=== PATIENT | female | born 1955 | race Asian ===

== ENCOUNTER 2016-08-01 05:22 | Emergency (ER) | payer OTHER ==
[~2016-08-01] VITALS: Ht 163.8 cm; Wt 58.2 kg
[~2016-08-01 05:22] MED LIST: AMLO5TAB4 PO; ASPI-664 PO; ATOR20TA38 PO; BENZ2TAB37 PO; BUSP10TA2 PO; DIVA500T7 PO; LEVO50TA83 PO; LORA-441 PO; LORA1TAB PO; OLAN15TA7 PO; OMEP20CA9 PO; PHEN100C PO; SERT50TA6 PO
[2016-08-01 05:31] VITALS: Ht 163.8 cm; Wt 58.2 kg
[2016-08-01] MEDS ORDERED: SOD CHLORIDE 0.9% 1,000 ML IV STA (06:20)
[2016-08-01] MEDS ORDERED: LORAZEPAM 2 MG INJ IV ONE (06:30)
[2016-08-01] MEDS ORDERED: ETOMIDATE 20 MG INJ ONE (07:00)
[2016-08-01] MEDS ORDERED: NORepinephrine 8MG/250 ML BAG ONE (07:00)
[2016-08-01] MEDS ORDERED: ROCURONIUM 50 MG INJ ONE (07:00)
[2016-08-01 07:06] LABS: HEMATOCRIT 43.2 % (37.0-47.0); HEMOGLOBIN 14.8 g/dl (12.0-16.0); MEAN CORPUSCULAR HEMOGLOBIN 32.7 pg (29.0-33.0); MEAN CORPUSCULAR HGB CONC 34.4 g/dl (32.0-37.0); MEAN CORPUSCULAR VOLUME 95.2 fl (82.0-101.0); MEAN PLATELET VOLUME 7.4 fl (7.4-10.4); PLATELET COUNT 280 10^3/UL (140-440); RED BLOOD COUNT 4.53 10^6/ul (4.20-5.40); RED CELL DISTRIBUTION WIDTH 15.1 % (11.5-14.5); UNCORRECTED WBC 6.7 10^3/ul (4.8-10.8); WHITE BLOOD COUNT 6.7 10^3/ul (4.8-10.8)
[2016-08-01 07:10] LABS: ADD UMIC YES; URINE BILIRUBIN (Dip) NEGATIVE (NEGATIVE); URINE BLOOD (Dip) TRACE (NEGATIVE); URINE COLOR LT. YELLOW (YELLOW); URINE GLUCOSE (Dip) NEGATIVE (NEGATIVE); URINE KETONES (Dip) NEGATIVE (NEGATIVE); URINE LEUKOCYTE ESTERASE (Dip) NEGATIVE (NEGATIVE); URINE NITRITE (Dip) NEGATIVE (NEGATIVE); URINE TOTAL PROTEIN (Dip) NEGATIVE (NEGATIVE); URINE UROBILINOGEN (Dip) 0.2 E.U./dL (0.1-1.0)
[2016-08-01 07:13] LABS: ALBUMIN 3.9 g/dl (3.3-4.9); CHLORIDE 99 mmol/L (97-110)
[2016-08-01 07:14] LABS: POTASSIUM 4.4 mmol/L (3.5-5.1); SODIUM 140 mmol/L (135-144)
[2016-08-01 07:16] LABS: BILIRUBIN,INDIRECT 0.2 mg/dl (0-1.1); BILIRUBIN,TOTAL 0.2 mg/dl (0.2-1.3); CREATININE 0.69 mg/dl (0.44-1.00)
[2016-08-01 07:17] LABS: ALANINE AMINOTRANSFERASE 23 IU/L (13-69); ALBUMIN/GLOBULIN RATIO 0.86; ALKALINE PHOSPHATASE 80 IU/L (42-121); ANION GAP 15 (8-16); ASPARTATE AMINO TRANSFERASE 32 IU/L (15-46); BLOOD UREA NITROGEN 17 mg/dl (7-20); CALCIUM 9.6 mg/dl (8.4-10.2); CARBON DIOXIDE 30 mmol/L (21-31); GLUCOSE 92 mg/dl (70-220); TOTAL PROTEIN 8.4 g/dl (6.1-8.1)
[2016-08-01 07:22] LABS: VALPROATE 79 ug/ml (50-100)
[2016-08-01 07:31] LABS: CONDITION 1; SUSPECT 1
[2016-08-01 07:32] LABS: LH ANALYZER COMMENTS 1
--- NOTE | 2016-08-01 07:37 | RADRPT ---
PROCEDURE: CT Brain without. CLINICAL INDICATION: Altered mental status TECHNIQUE: A CT of the brain was performed utilizing axial sections from the skull base through th e vertex without contrast. The scan was reviewed in soft tissue brain and high frequency resolution bone algorithm windows. Images were reviewed on a high-resolution PACS workstation. The exam CTDI = 45.01 mGy, and the DLP = 720.23 mGy-cm. COMPARISON: Head CT dated 06/05/2015 FINDINGS: There are postsurgical changes from left frontoparietal craniotomy. There are encephalomalacic clayton ges of the left temporal and parietal lobes with ex vacuo dilatation of the left temporal horn. The re is mild prominence of the lateral ventricles and cerebral sulci, consistent with diffuse cerebral atrophy. There is no intracranial hemorrhage, midline shift, or mass effect. No abnormal extra-axi al fluid collections are identified. The rodriguez-white differentiation is well preserved. The basal cisterns are patent. The posterior fossa is unremarkable. The visualized portions of the orbits are unremarkable. The paranasal sinuses and mastoid air cells are clear. No calvarial fracture or abnormality are identified. The soft tissues are unremarkable . IMPRESSION: 1. No acute intracranial abnormality. No significant interval change. 2. Stable postsurgical changes from left frontoparietal craniotomy with encephalomalacic changes of the left temporal and parietal lobes and ex vacuo dilatation of the left temporal horn. 3. Age related senescent changes with mild diffuse cerebral atrophy. RPTAT: HH .Tati Flores MD, Date Time Electronically viewed and signed by .Tati Flores MD, MD on 08/01/2016 07:36 .Joy/
[2016-08-01 07:46] LABS: TROPONIN-I < 0.012 ng/ml (0.00-0.12)
[2016-08-01 07:59] LABS: BACTERIA,URINE MODERATE
--- NOTE | 2016-08-01 08:27 | ERD ---
ER Documentation Chief Complaint Date/Time DATE: 08/01/16 TIME: 08:26 Chief Complaint BIBA c/o shakiness and nausea HPI Patient is a 60-year-old female with seizures, psychiatric disease, and OCD who presents saying "I am trying to kill myself". She said that she has pain in her butt, headache, and bilateral hand pain. She said the symptoms started yesterday. She is feeling shaky. She said the symptoms were worse today. Upon review of old medical records she has multiple visits to the ER for various complaints. Her primary doctor is at [facility]. ROS All systems reviewed and are negative except as per history of present illness. Medications Home Meds Active Scripts Lorazepam* (Lorazepam*) 1 Mg Tablet, 1 MG PO Q8H Y for ANXIETY, #15 TAB Prov:CHUN PASTRANA 02/08/16 Lorazepam* (Ativan*) 0.5 Mg Tablet, 0.5 MG PO Q8H Y for ANXIETY, #5 TAB Prov:FALGUNI BONDS DO 10/24/15 Reported Medications Sertraline Hcl* (Sertraline Hcl*) 50 Mg Tablet, 50 MG PO DAILY, TAB 06/05/15 Olanzapine* (Olanzapine*) 15 Mg Tablet, 15 MG PO DAILY, TAB 06/05/15 Benztropine Mesylate* (Benztropine Mesylate*) 2 Mg Tablet, 2 MG PO Q2 Y for SHAKINESS, TAB 06/05/15 Aspirin* (Aspirin* EC) 81 Mg Tablet.dr, 81 MG PO DAILY, TAB 06/05/15 Omeprazole* (Prilosec*) 20 Mg Capsule.dr, 20 MG PO 30 MIN AC BREAKFAST, CAP 05/13/14 Atorvastatin Calcium* (Atorvastatin Calcium*) 20 Mg Tablet, 20 MG PO HS, TAB 05/13/14 Levothyroxine Sodium* (Synthroid*) 50 Mcg Tablet, 50 MCG PO 30 MIN AC BREAKFAST , TAB 05/13/14 Amlodipine Besylate* (Norvasc*) 5 Mg Tablet, 5 MG PO QAM, TAB 05/13/14 Phenytoin* Sodium Extended (Dilantin*) 100 Mg Capsule, 400 MG PO HS, CAP 05/13/14 Divalproex Sodium* (Depakote ER*) 500 Mg Tabsr, 1000 MG PO BID, TAB.SA 05/13/14 Buspirone Hcl* (Buspirone Hcl*) 10 Mg Tab, 10 MG PO TID, TAB 05/13/14 Allergies Allergies: Coded Allergies: haloperidol (Verified Allergy, Unknown, 02/07/16) levetiracetam (Verified Allergy, Unknown, 02/07/16) risperidone (Verified Allergy, Unknown, 02/07/16) PMhx/Soc History of Surgery: Yes (BRAIN TUMOR 1983) Anesthesia Reaction: No Hx Neurological Disorder: No Hx Respiratory Disorders: No Hx Cardiac Disorders: Yes (HTN, CHOLESTEROL ) Hx Psychiatric Problems: Yes (ANXIETY, SUICIDAL ) Hx Miscellaneous Medical Probl: Yes (DIABETES, OCD ) Hx Alcohol Use: No Hx Substance Use: No Hx Tobacco Use: No Smoking Status: Never smoker FmHx Family History: No diabetes Physical Exam Vitals Vital Signs Date Time Temp Pulse Resp B/P Pulse Ox O2 Delivery O2 Flow Rate FiO2 08/01/16 05:31 97.1 128 18 179/89 96 Physical Exam Const: No acute distress Head: Atraumatic Eyes: Normal Conjunctiva ENT: Normal External Ears, Nose and Mouth. Neck: Full range of motion..~ No meningismus. Resp: Clear to auscultation bilaterally Cardio: Regular rate and rhythm, no murmurs Abd: Soft, non tender, non distended. Normal bowel sounds Skin: No petechiae or rashes Back: No midline or flank tenderness Ext: No cyanosis, or edema Neur: Awake and alert, anxious, bilateral hand shakiness Psych: Normal Mood and Affect Result Diagram: 08/01/1644 08/01/16 0644 Results 24 hrs Laboratory Tests Test 08/01/16 06:44 Alanine Aminotransferase (ALT/SGPT) 23IU/L Albumin 3.9g/dl Albumin/Globulin Ratio 0.86 Alkaline Phosphatase 80IU/L Anion Gap 15 Aspartate Amino Transf (AST/SGOT) 32IU/L Basophils # 10^3/ul Basophils % % Blood Morphology Comment Blood Urea Nitrogen 17mg/dl Calcium Level 9.6mg/dl Carbon Dioxide Level 30mmol/L Chloride Level 99mmol/L Creatinine 0.69mg/dl Direct Bilirubin 0.00mg/dl Eosinophils # 10^3/ul Eosinophils % % Globulin 4.50g/dl Glucose Level 92mg/dl Hematocrit 43.2% Hemoglobin 14.8g/dl Indirect Bilirubin 0.2mg/dl Lipase 64U/L Lymphocytes # 10^3/ul Lymphocytes % % Mean Corpuscular Hemoglobin 32.7pg Mean Corpuscular Hemoglobin Concent 34.4g/dl Mean Corpuscular Volume 95.2fl Mean Platelet Volume 7.4fl Monocytes # 10^3/ul Neutrophils # 10^3/ul Neutrophils % % Nucleated Red Blood Cells # 10^3/ul Nucleated Red Blood Cells % /100WBC Phenytoin (Dilantin) Level 13.7ug/ml Platelet Count 50154^3/UL Potassium Level 4.4mmol/L Red Blood Count 4.5310^6/ul Red Cell Distribution Width 15.1% Sodium Level 140mmol/L Total Bilirubin 0.2mg/dl Total Protein 8.4g/dl Troponin I < 0.012ng/ml Urine Bacteria MODERATE Urine Bilirubin NEGATIVE Urine Clarity CLEAR Urine Color LT. YELLOW Urine Epithelial Cells MANY Urine Glucose NEGATIVE% Urine Hemoglobin TRACE Urine Ketones NEGATIVE Urine Leukocyte Esterase NEGATIVE Urine Microscopic RBC 2-5/HPF Urine Microscopic WBC 2-5/HPF Urine Nitrite NEGATIVE Urine Specific [place] 1.010 Urine Total Protein NEGATIVE Urine Urobilinogen 0.2 E.U./dL Urine pH 6.5 Valproic Acid (Depakene) Level 79ug/ml White Blood Count 6.710^3/ul Current Medications Medications (Trade) Dose Ordered Sig/Moustapha Route PRN Reason Start Time Stop Time Status Last Admin Dose Admin Sodium Chloride (NS) 1,000 ml @ 1,000 mls/hr Q1H STAT IV 08/01/16 06:20 08/01/16 07:19 DC 08/01/16 06:57 Lorazepam (Ativan) 0.5 mg ONCE ONCE IV 08/01/16 06:30 08/01/16 06:31 DC 08/01/16 06:57 Procedures/MDM EKG read by me: Rate/Rhythm: Regular rate and rhythm at a rate of 60 Intervals: Normal Impression: No evidence of ischemia or arrhythmia CT head negative for intracranial mass or bleed per radiology. Patient is a 60-year-old female with psychiatric disease and seizures who presents with pain and shaking. The patient had a full workup including laboratory studies, EKG, and CT brain. Laboratory studies were basically negative. Her Dilantin and valproic acid levels are normal. EKG shows no sign of ischemia. CT scan of the brain shows no intracranial hemorrhage or mass. At this point I believe outpatient management is appropriate. I doubt stroke, acute coronary syndrome, or electrolyte abnormality. I believe outpatient management is appropriate but the patient will need to follow-up closely with her primary doctor within 24-48 hours. She can return sooner for any worsening symptoms. Departure Diagnosis: Primary Impression: Episode of shaking Condition: Fair Patient Instructions: Palpitations Referrals: Your doctor Additional Instructions: Call your primary care doctor TOMORROW for an appointment during the next 1-2 days.See the doctor sooner or return here if your condition worsens before your appointment time. JL BETANCOURT MD Aug 01, 2016 08:27
[2016-08-01 08:41] VITALS: BP 122/65; PULSE 77; RESP 18
[2016-08-01 09:55] LABS: BASOPHIL # 0.1 10^3/ul (0.0-0.1); MONOCYTE # 1.2 10^3/ul (0.3-0.9); NEUTROPHIL # 3.2 10^3/ul (1.6-7.5)
== END 2016-08-01 08:42 | disposition home or self-care (01) ==
LOC: E/R 05:22
DX: R25.1 Tremor, unspecified (principal); I10 Essential (primary) hypertension; E11.9 Type 2 diabetes mellitus without complications; R51 Headache; Z79.82 Long term (current) use of aspirin
CPT/HCPCS: 36415; 70450; 80053; 80164; 80185; 81001; 83690; 84484; 85025; 93005; 96374; 99285; J2060; J7030; 81003

== ENCOUNTER 2017-05-19 06:08 | Emergency (ER) | payer OTHER ==
[~2017-05-19] VITALS: Ht 160 cm; Wt 60.0 kg
[2017-05-19 06:17] VITALS: Ht 160 cm; Wt 60.0 kg
[2017-05-19] MEDS ORDERED: LORAZEPAM 2 MG INJ IV ONE (06:30)
[2017-05-19 07:22] LABS: BASOPHILS % 0.4 % (0.0-2.0); EOSINOPHILS # 0.2 10^3/ul (0.0-0.5); EOSINOPHILS % 3.3 % (0.0-7.0); HEMATOCRIT 39.9 % (37.0-47.0); HEMOGLOBIN 13.7 g/dl (12.0-16.0); LYMPHOCYTES # 1.7 10^3/ul (0.8-2.9); LYMPHOCYTES % 34.3 % (15.0-51.0); MEAN CORPUSCULAR HEMOGLOBIN 31.5 pg (29.0-33.0); MEAN CORPUSCULAR HGB CONC 34.3 g/dl (32.0-37.0); MEAN CORPUSCULAR VOLUME 91.7 fl (82.0-101.0); MEAN PLATELET VOLUME 9.3 fl (7.4-10.4); MONOCYTE # 0.7 10^3/ul (0.3-0.9); MONOCYTES % 15.3 % (0.0-11.0); NEUTROPHIL # 2.2 10^3/ul (1.6-7.5); NEUTROPHILS % 46.3 % (39.0-77.0); PLATELET COUNT 235 10^3/UL (140-415); RED BLOOD COUNT 4.35 10^6/ul (4.20-5.40); RED CELL DISTRIBUTION WIDTH 13.5 % (11.5-14.5); WHITE BLOOD COUNT 4.8 10^3/ul (4.8-10.8)
[2017-05-19 07:41] LABS: ANION GAP 14 (8-16); BLOOD UREA NITROGEN 16 mg/dl (7-20); CALCIUM 9.3 mg/dl (8.4-10.2); CARBON DIOXIDE 30 mmol/L (21-31); CHLORIDE 104 mmol/L (97-110); CREATININE 0.78 mg/dl (0.44-1.00); GLUCOSE 114 mg/dl (70-220); MAGNESIUM 1.9 mg/dl (1.7-2.5); POTASSIUM 3.6 mmol/L (3.5-5.1); SODIUM 144 mmol/L (135-144)
--- NOTE | 2017-05-19 07:48 | RADRPT ---
PROCEDURE: CHEST - 1 VIEW CLINICAL INDICATION: 61-year-old female with chest pain. TECHNIQUE: A single frontal AP upright portable view of the chest was performed. The images were reviewed on a PACS workstation. COMPARISON: CR CHEST 05/24/2013 FINDINGS: The cardiomediastinal silhouette there is mildly enlarged.. The left costophrenic angle is incomplet joon visualized. There is no evidence for an infiltrate. There is no evidence for congestive heart f ailure. There is no evidence for pneumothorax. The osseous structures are intact. IMPRESSION: Mild cardiomegaly. .Reji De La Torre MD, MD Date Time Electronically viewed and signed by .Reji De La Torre MD, on 05/19/2017 07:48 .M/
[2017-05-19 07:54] LABS: TROPONIN-I < 0.012 ng/ml (0.00-0.12)
--- NOTE | 2017-05-19 09:15 | ERD ---
ER Documentation Chief Complaint Chief Complaint anxious, shakey, abdominal pain- "felt her heart was all over the place" HPI Patient is a 61-year-old female with panic attacks, seizures, and previous brain tumor with resection who presents saying that she is having palpitations. She was brought in by ambulance. She says "I apologize having a heart attack ". She said that her heart was beating fast. It started 2 hours ago. She said that she had a dream that she was dying and felt very anxious. Upon review of old medical records the patient has multiple visits to the ER for various complaints. ROS All systems reviewed and are negative except as per history of present illness. Medications Home Meds Active Scripts Lorazepam* (Lorazepam*) 1 Mg Tablet, 1 MG PO Q8H Y for ANXIETY, #15 TAB Prov:CHUN PASTRANA 02/08/16 Lorazepam* (Ativan*) 0.5 Mg Tablet, 0.5 MG PO Q8H Y for ANXIETY, #5 TAB Prov:FALGUNI BONDS DO 10/24/15 Reported Medications Sertraline Hcl* (Sertraline Hcl*) 50 Mg Tablet, 50 MG PO DAILY, TAB 06/05/15 Olanzapine* (Olanzapine*) 15 Mg Tablet, 15 MG PO DAILY, TAB 06/05/15 Benztropine Mesylate* (Benztropine Mesylate*) 2 Mg Tablet, 2 MG PO Q2 Y for SHAKINESS, TAB 06/05/15 Aspirin* (Aspirin* EC) 81 Mg Tablet.dr, 81 MG PO DAILY, TAB 06/05/15 Omeprazole* (Prilosec*) 20 Mg Capsule.dr, 20 MG PO 30 MIN AC BREAKFAST, CAP 05/13/14 Atorvastatin Calcium* (Atorvastatin Calcium*) 20 Mg Tablet, 20 MG PO HS, TAB 05/13/14 Levothyroxine Sodium* (Synthroid*) 50 Mcg Tablet, 50 MCG PO 30 MIN AC BREAKFAST , TAB 05/13/14 Amlodipine Besylate* (Norvasc*) 5 Mg Tablet, 5 MG PO QAM, TAB 05/13/14 Phenytoin* Sodium Extended (Dilantin*) 100 Mg Capsule, 400 MG PO HS, CAP 05/13/14 Divalproex Sodium* (Depakote ER*) 500 Mg Tabsr, 1000 MG PO BID, TAB.SA 05/13/14 Buspirone Hcl* (Buspirone Hcl*) 10 Mg Tab, 10 MG PO TID, TAB 05/13/14 Allergies Allergies: Coded Allergies: haloperidol (Verified Allergy, Unknown, 02/07/16) levetiracetam (Verified Allergy, Unknown, 02/07/16) risperidone (Verified Allergy, Unknown, 02/07/16) PMhx/Soc History of Surgery: Yes (BRAIN TUMOR 1983) Anesthesia Reaction: No Hx Neurological Disorder: No Hx Respiratory Disorders: No Hx Cardiac Disorders: Yes (HTN, CHOLESTEROL ) Hx Psychiatric Problems: Yes (ANXIETY) Hx Miscellaneous Medical Probl: Yes (DIABETES, OCD ) Hx Alcohol Use: No Hx Substance Use: No Hx Tobacco Use: No Smoking Status: Never smoker FmHx Family History: diabetes Physical Exam Vitals Vital Signs Date Time Temp Pulse Resp B/P Pulse Ox O2 Delivery O2 Flow Rate FiO2 05/19/17 08:15 56 19 146/65 100 Nasal Cannula 2.0 05/19/17 06:52 Nasal Cannula 2 05/19/17 06:17 98.3 74 15 187/96 99 Physical Exam Const: Anxious Head: Atraumatic Eyes: Normal Conjunctiva ENT: Normal External Ears, Nose and Mouth. Neck: Full range of motion..~ No meningismus. Resp: Clear to auscultation bilaterally Cardio: Regular rate and rhythm, no murmurs Abd: Soft, non tender, non distended. Normal bowel sounds Skin: No petechiae or rashes Back: No midline or flank tenderness Ext: No cyanosis, or edema Neur: Awake and and anxious, resting tremor Result Diagram: 05/19/1751 05/19/17 0651 Results 24 hrs Laboratory Tests Test 05/19/17 06:51 White Blood Count 4.810^3/ul Red Blood Count 4.3510^6/ul Hemoglobin 13.7g/dl Hematocrit 39.9% Mean Corpuscular Volume 91.7fl Mean Corpuscular Hemoglobin 31.5pg Mean Corpuscular Hemoglobin Concent 34.3g/dl Red Cell Distribution Width 13.5% Platelet Count 95439^3/UL Mean Platelet Volume 9.3fl Neutrophils % 46.3% Lymphocytes % 34.3% Monocytes % 15.3% Eosinophils % 3.3% Basophils % 0.4% Nucleated Red Blood Cells % 0.0/100WBC Neutrophils # 2.210^3/ul Lymphocytes # 1.710^3/ul Monocytes # 0.710^3/ul Eosinophils # 0.210^3/ul Basophils # 0.010^3/ul Nucleated Red Blood Cells # 0.010^3/ul Sodium Level 144mmol/L Potassium Level 3.6mmol/L Chloride Level 104mmol/L Carbon Dioxide Level 30mmol/L Anion Gap 14 Blood Urea Nitrogen 16mg/dl Creatinine 0.78mg/dl Glucose Level 114mg/dl Calcium Level 9.3mg/dl Magnesium Level 1.9mg/dl Troponin I < 0.012ng/ml Thyroid Stimulating Hormone (TSH) 5.440MIU/L Free Thyroxine 1.86ng/dl Current Medications Medications (Trade) Dose Ordered Sig/Moustapha Route PRN Reason Start Time Stop Time Status Last Admin Dose Admin Lorazepam (Ativan) 1 mg ONCE ONCE IV 05/19/17 06:30 05/19/17 06:31 DC 05/19/17 07:03 Procedures/MDM EKG read by me: Rate/Rhythm: Regular rate and rhythm at a rate of 72 Intervals: Normal Impression: No evidence of ischemia or arrhythmia Chest x-ray shows mild cardiomegaly per radiology. Patient is a 61-year-old female who presents with anxiety and palpitations. Her EKG shows no signs of arrhythmia or ischemia. Laboratory studies are basically normal. She had a mildly elevated free T4 showing mild hyperthyroidism. This could be the cause of her tremor and palpitations. I will give her a copy of her laboratory studies and she will need to follow-up with her primary doctor within 24-48 hours for reevaluation. She can return sooner for any worsening symptoms. I do not believe she requires inpatient admission at this time. Departure Diagnosis: Primary Impression: Palpitations Additional Impression: Anxiety Condition: Fair Patient Instructions: Anxiety Reaction, Palpitations Referrals: Your doctor Additional Instructions: Call your primary care doctor TOMORROW for an appointment during the next 1-2 days.See the doctor sooner or return here if your condition worsens before your appointment time. JL BETANCOURT MD May 19, 2017 09:15
[2017-05-19 09:50] VITALS: BP 129/74; PULSE 59; RESP 18; TEMP 97.9
== END 2017-05-19 09:52 | disposition home or self-care (01) ==
LOC: E/R 06:08
DX: R00.2 Palpitations (principal); I10 Essential (primary) hypertension; E11.9 Type 2 diabetes mellitus without complications; F41.9 Anxiety disorder, unspecified; Z86.011 Personal history of benign neoplasm of the brain; Z79.82 Long term (current) use of aspirin
CPT/HCPCS: 36415; 71010; 80048; 80185; 83735; 84439; 84443; 84484; 85025; 93005; 96374; 99285; J2060